=== PATIENT | female | born 1965 | race Hispanic/Latino ===

== ENCOUNTER 2017-11-05 21:25 | Emergency (ER) | payer OTHER ==
[~2017-11-05 21:25] MED LIST: BUTA-295 PO; CIPR-245 PO; HYDR200T4 PO; LORA0.5T2 PO; MULT-1271 PO; PRED2.5T PO; VENL-53 PO
[2017-11-05] MEDS ORDERED: ONDANSETRON HCL 4 MG/2 ML VIAL ONE (22:00)
[2017-11-05 22:02] LABS: APPEARANCE,URINE Clear (CLEAR); BILIRUBIN,URINE Negative (NEGATIVE); COLOR,URINE Dark Yellow (YELLOW); GLUCOSE, URINE (UA) Negative (NEGATIVE); KETONES,URINE 40 mg/dL (NEGATIVE); LEUKOCYTE ESTERASE ,URINE Negative (NEGATIVE); NITRATE,URINE Negative (NEGATIVE); OCCULT BLOOD,URINE Negative (NEGATIVE); PROTEIN,URINE POS 1+ (NEGATIVE); UROBILINOGEN,URINE 0.2 mg/dL (0.2-1.0)
[2017-11-05 22:07] LABS: AMPHET/METH SCREEN,URINE NEGATIVE (NEGATIVE); BARBITURATE SCREEN, URINE POSITIVE (NEGATIVE); BENZODIAZEPINES SCREEN,URINE NEGATIVE (NEGATIVE); CANNABINOID SCREEN,URINE NEGATIVE (NEGATIVE); COCAINE SCREEN,URINE NEGATIVE (NEGATIVE); OPIATE SCREEN,URINE NEGATIVE (NEGATIVE); PHENCYCLIDINE SCREEN,URINE NEGATIVE (NEGATIVE)
[2017-11-05 22:08] LABS: BASOPHILS % (AUTO) 0.1 % (0.0-5.0); EOSINOPHILS % (AUTO) 0.3 % (0.0-8.0); HEMATOCRIT 39.6 % (36-48); LYMPHOCYTES % (AUTO) 10.3 % (21.0-51.0); MEAN CORPUSCULAR HGB CONC 33.7 g/dL (32.0-36.0); MEAN CORPUSCULAR VOLUME 86.2 fL (79-99); MONOCYTES % (AUTO) 7.6 % (3.0-13.0); NEUTROPHILS % (AUTO) 81.7 % (40.0-77.0); PLATELET COUNT (AUTO) 152 K/uL (130-400); RED BLOOD CELL COUNT(AUTO) 4.59 MIL/uL (4.00-5.50); RED CELL DISTRIBUTION WIDTH 13.1 % (11.0-15.5); WHITE BLOOD COUNT (AUTO) 9.3 K/uL (4.8-10.8)
[2017-11-05 22:12] LABS: CARBON DIOXIDE 28 mmol/L (21-32); CHLORIDE 101 mmol/L (101-111); GLOMERULAR FILTR. RATE CALC 62 mL/min (>60); GLUCOSE,RANDOM 96 mg/dL (70-105); POTASSIUM 3.4 mmol/L (3.5-5.1); SODIUM SERUM 136 mmol/L (136-145); UREA NITROGEN, BLOOD 13 mg/dL (7-18)
[2017-11-05 22:13] LABS: INR 1.08 (0.85-1.15); PARTIAL THROMBOPLASTIN TIME 26.6 SEC (26.3-35.5); PROTHROMBIN TIME 11.3 SEC (9.6-11.6)
[2017-11-05 22:14] LABS: BACTERIA,URINE Few /HPF (None Seen); MUCUS,URINE Many LPF (None Seen); RBC,URINE None Seen /HPF (0-1); WBC,URINE 0-1 /HPF (0-1)
[2017-11-05 22:25] LABS: ALANINE AMINOTRANSFERASE 26 U/L (12-78); ALBUMIN 3.3 g/dL (3.5-5.0); AMYLASE 53 U/L (25-115); ASPARTATE AMINOTRANSFERASE 23 U/L (10-37); BILIRUBIN,TOTAL 0.5 mg/dL (0.2-1.0); CREATINE KINASE MB < 0.5 ng/mL (0.5-3.6); CREATINE KINASE, TOTAL 62 U/L (21-232); LIPASE 100 U/L (114-286); TOTAL PROTEIN, SERUM 7.2 g/dL (6.0-8.3)
== END 2017-11-05 23:18 | disposition home or self-care (01) ==
LOC: EDH 21:25
DX: A09 Infectious gastroenteritis and colitis, unspecified (principal); M32.9 Systemic lupus erythematosus, unspecified; H53.149 Visual discomfort, unspecified; Z88.0 Allergy status to penicillin; Z79.899 Other long term (current) drug therapy; Z98.890 Other specified postprocedural states
CPT/HCPCS: 36415; 74176; 80053; 80305; 81001; 82150; 82550; 82553; 83690; 85025; 85610; 85730; 93005; 96374; 99285; J2405

== ENCOUNTER → 2017-12-02 | Outpatient (CLI) | payer OTHER | END | disposition home or self-care (01) | LOC: RAH 07:54 | PROVIDERS: ATTEND Internal Medicine Gastroenterology | DX: R10.11 Right upper quadrant pain (principal); R11.2 Nausea with vomiting, unspecified | CPT/HCPCS: 76700 ==

== ENCOUNTER 2024-09-01 20:20 | Emergency (ER) | payer OTHER ==
[~2024-09-01] VITALS: Ht 165.1 cm; Wt 71.2 kg
[~2024-09-01 20:20] MED LIST changes: -CIPR-245 PO; +CIPR500T10 PO; -HYDR200T4 PO; +HYDR200T75 PO
[2024-09-01 20:53] LABS: RAPID GROUP A STREP negative (NEGATIVE)
[2024-09-01 20:56] LABS: SARS-CoV-2, RNA, NAAT NEGATIVE SARS CoV-2 (NEGATIVE)
[2024-09-01 21:01] LABS: BASOPHILS # (AUTO) 0.02 K/uL (0.00-0.20); BASOPHILS % (AUTO) 0.4 % (0.0-5.0); EOSINOPHILS # (AUTO) 0.01 K/uL (0.00-0.70); EOSINOPHILS % (AUTO) 0.2 % (0.0-8.0); HEMATOCRIT 45.8 % (36-48); IMMATURE GRANULOCYTE ABSOLUTE 0.01 K/uL (0-1); LYMPHOCYTES # (AUTO) 1.2 K/uL (1.0-4.8); LYMPHOCYTES % (AUTO) 22.9 % (21.0-51.0); MEAN CORPUSCULAR HEMOGLOBIN 29.1 pg (27.0-33.0); MEAN CORPUSCULAR HGB CONC 33.2 g/dL (32.0-36.0); MEAN CORPUSCULAR VOLUME 87.7 fL (79-99); MONOCYTES # (AUTO) 0.5 K/uL (0.1-1.0); MONOCYTES % (AUTO) 9.8 % (3.0-13.0); NEUTROPHILS # (AUTO) 3.5 K/uL (1.8-7.7); NEUTROPHILS % (AUTO) 66.5 % (40.0-77.0); PLATELET COUNT (AUTO) 202 K/uL (130-400); RED BLOOD CELL COUNT(AUTO) 5.22 MIL/uL (4.00-5.50); RED CELL DISTRIBUTION WIDTH 12.7 % (11.0-15.5); WHITE BLOOD COUNT (AUTO) 5.3 K/uL (4.8-10.8)
[2024-09-01 21:03] LABS: ADD UA MICROSCOPIC YES; APPEARANCE,URINE CLEAR (CLEAR); BILIRUBIN,URINE NEGATIVE (NEGATIVE); COLOR,URINE YELLOW (YELLOW); GLUCOSE, URINE (UA) NEGATIVE (NEGATIVE); KETONES,URINE 60 mg/dL (NEGATIVE); LEUKOCYTE ESTERASE ,URINE 250 Leu/uL (NEGATIVE); NITRATE,URINE NEGATIVE (NEGATIVE); OCCULT BLOOD,URINE NEGATIVE (NEGATIVE); PH,URINE 7.5 (5.0-8.0); PROTEIN,URINE 20 mg/dL (NEGATIVE); UROBILINOGEN,URINE 0.2 mg/dL (0.2-1.0)
[2024-09-01 21:03] LABS: INFLUENZA TYPE A Negative For Type A (NEGATIVE); INFLUENZA TYPE B Negative For Type B (NEGATIVE)
--- NOTE | 2024-09-01 21:05 | ERN ---
General Chief Complaint: Multiple Complaints Stated Complaint: ABDOMINAL PAIN,VOMITTING,DEHYDRATED,NO FOOD 3DAYS Time Seen by MD: 20:22 Time Seen by Midlevel: 20:22 Source: patient History of Present Illness Initial Comments Patient is a 59-year-old female presenting to the emergency department with multiple complaints. She states that for the last couple of days she has been having generalized body weakness along with nausea and vomiting and chills. She was still reports developing right ear pain. She was seen by her primary care doctor earlier today who diagnosed her with a right ear infection along with a throat infection. She was given doxycycline and discharged home with supportive management. She states she has been unable to take her medications secondary to her vomiting. Allergies: Coded Allergies: Penicillins (Unverified Allergy, Unknown, 10/09/17) Home Meds Active Scripts Nitrofurantoin/Nitrofuran Mac (Macrobid) 100 Mg Cap, 1 CAP PO BID for 5 Days, #10 CAP 0 Refills Prov:DONOVAN CHILDS 09/01/24 Famotidine (Pepcid) 20 Mg Tablet, 1 TAB PO BID for 7 Days, #14 TAB 0 Refills Prov:DONOVAN CHILDS 09/01/24 Ondansetron (Ondansetron Odt) 4 Mg Tab.rapdis, 4 MG PO BID for 7 Days, #14 TAB Prov:DONOVAN CHILDS 09/01/24 Ciprofloxacin HCl (Ciprofloxacin HCl) 500 Mg Tablet, 500 MG PO BID, #10 TAB Prov:HOME PENALOZA MD 10/11/17 Reported Medications Multivit-Min/Iron Fum/Folic AC (Unvuw-Imeylgi-Mxvprtym Tablet) 1 Each Tablet, 1 EACH PO DAILY, TAB 10/09/17 Butalbital/Aspirin/Caffeine (Lyuuus-Dwhrokm-Ryulv 50-325-40) 1 Each Tablet, 1 EACH PO Q8H PRN for HEADACHE, TAB 10/09/17 Prednisone (Prednisone) 2.5 Mg Tablet, 2.5 MG PO BID, TAB 10/09/17 Venlafaxine HCl (Venlafaxine HCl) 37.5 Mg Tablet, 37.5 MG PO BID, TAB 10/09/17 Hydroxychloroquine Sulfate (Hydroxychloroquine Sulfate) 200 Mg Tablet, 200 MG PO AM, TAB 10/09/17 Lorazepam (Lorazepam) 0.5 Mg Tablet, 0.5 MG PO BID PRN for ANXIETY, TAB 10/09/17 Past Medical History Past Medical History: Fibromyalgia, Other Medical History Other: CONNECTIVE TISSUE DISORDER, RAYNAUDS Past Surgical History: Appendectomy, ROS Dictation CONSTITUTIONAL: Negative except for HPI HEAD/FACE: Negative except for HPI EENT: Negative except for HPI RESPIRATORY: Negative except for HPI GASTROINTESTINAL/ABDOMINAL: Negative except for HPI GENITOURINARY: Negative except for HPI MUSCULOSKELETAL: Negative except for HPI INTEGUMENTARY: Negative except for HPI NEUROLOGICAL/PSYCH: Negative except for HPI HEMATOLOGIC/LYMPHATIC: Negative except for HPI All Systems Negative, Except as noted above. 13 point review of systems assessed and all negative except for above. Physical Exam Physical Exam Dictation Vital Signs reviewed General Appearance: Alert, oriented x 3, no acute distress, well developed, nourished. Head and Face: non-traumatic. Eyes: PERRL, pink conjunctivas, eyelid no trauma, anterior chamber with arcus senilis. Ears: Pinnas intact and no signs of trauma or erythema ear canals clear and no discharge TM no erythema Nose: No discharge, no bleeding. Oropharynx: Mouth normal, tongue pink, pharynx clear,no erythema, tonsils no exudates, no abscesses noted, mucous membrane moist Neck: Supple, non-tender, no thyromegaly, no masses, no JVD, no bruits Breast:Deferred Chest:No tenderness, no crepitus, no paradoxical movement, no retractions Lungs:Clear, well-ventilated, symmetric, no rales, no wheezing, no rhonchi, no stridor, good breath sounds bilaterally Heart: Regular rate, regular rhythm, no murmur, no gallops Vascular: no peripheral edema, Abdomen: Soft, positive bowel sounds, nondistended, no guarding, nontender, no rebound, no masses no hepatomegaly, no splenomegaly, no Palmer's sign, no hernias. Rectal: Deferred Genital: Deferred Neurological: Normal speech, motor function intact, sensory function intact Musculoskeletal: Neck nontender, full range of motion, back nontender, full range of motion, Extremities: nontender, full range of motion Skin: Color pink, dry, no turgor, no rash, no lacerations, no abrasions, no contusions. Lymphatic: Deferred Results Laboratory and Microbiology Lab and Micro Result Laboratory Tests Test 09/01/24 20:29 09/01/24 20:48 09/01/24 20:49 Influenza Type A Antigen Negative For Type A Influenza Type B Antigen Negative For Type B SARS-CoV-2, RNA, NAAT NEGATIVE SARS CoV-2 Group A Streptococcus Rapid negative (NEGATIVE) White Blood Count 5.3 K/uL (4.8-10.8) Red Blood Count 5.22 MIL/uL (4.00-5.50) Hemoglobin 15.2 g/dL (12.0-16.0) Hematocrit 45.8 % (36-48) Mean Corpuscular Volume 87.7 fL (79-99) Mean Corpuscular Hemoglobin 29.1 pg (27.0-33.0) Mean Corpuscular Hemoglobin Concent 33.2 g/dL (32.0-36.0) Red Cell Distribution Width 12.7 % (11.0-15.5) Platelet Count 202 K/uL (130-400) Mean Platelet Volume 10.2 fL (7.5-10.5) Immature Granulocyte % (Auto) 0.2 % (0-1) Neutrophils (%) (Auto) 66.5 % (40.0-77.0) Lymphocytes (%) (Auto) 22.9 % (21.0-51.0) Monocytes (%) (Auto) 9.8 % (3.0-13.0) Eosinophils (%) (Auto) 0.2 % (0.0-8.0) Basophils (%) (Auto) 0.4 % (0.0-5.0) Neutrophils # (Auto) 3.5 K/uL (1.8-7.7) Lymphocytes # (Auto) 1.2 K/uL (1.0-4.8) Monocytes # (Auto) 0.5 K/uL (0.1-1.0) Eosinophils # (Auto) 0.01 K/uL (0.00-0.70) Basophils # (Auto) 0.02 K/uL (0.00-0.20) Absolute Immature Granulocyte (auto 0.01 K/uL (0-1) Nucleated Red Blood Cells 0.0 % (0.0-0.19) Sodium Level 144 mmol/L (136-145) Potassium Level 3.4 mmol/L (3.5-5.1) L Chloride Level 105 mmol/L (101-111) Carbon Dioxide Level 30 mmol/L (21-32) Blood Urea Nitrogen 18 mg/dL (7-18) Creatinine 0.9 mg/dL (0.5-1.0) Glomerular Filtration Rate Calc 73 mL/min (>90) Random Glucose 102 mg/dL (70-105) Total Calcium 9.4 mg/dL (8.5-10.1) Total Bilirubin 0.5 mg/dL (0.2-1.0) Direct Bilirubin 0.1 mg/dL (0.0-0.3) Aspartate Amino Transf (AST/SGOT) 23 U/L (10-37) Alanine Aminotransferase (ALT/SGPT) 26 U/L (12-78) Alkaline Phosphatase 93 U/L (50-136) Total Protein 8.5 g/dL (6.0-8.3) H Albumin 3.9 g/dL (3.5-5.0) Lipase 34 U/L (16-77) Urine Color YELLOW (YELLOW) Urine Appearance CLEAR (CLEAR) Urine pH 7.5 (5.0-8.0) Urine Specific Mcnabb 1.019 (1.001-1.031) Urine Protein 20 mg/dL (NEGATIVE) H Urine Glucose (UA) NEGATIVE mg/dL (NEGATIVE) Urine Ketones 60 mg/dL (NEGATIVE) H Urine Occult Blood NEGATIVE (NEGATIVE) Urine Nitrate NEGATIVE (NEGATIVE) Urine Bilirubin NEGATIVE mg/dL (NEGATIVE) Urine Urobilinogen 0.2 mg/dL (0.2-1.0) Urine Leukocyte Esterase 250 Roldan/uL (NEGATIVE) H Urine RBC 2-5 /HPF (0-1) H Urine WBC 6-10 /HPF (0-1) H Urine Squamous Epithelial Cells RARE /HPF (0-2) Urine Bacteria RARE /HPF (None Seen) Labs Reviewed?: Yes MDM MDM: Patient is a 59-year-old female presenting to the emergency department with multiple complaints. She states that for the last couple of days she has been having generalized body weakness along with nausea and vomiting and chills. She was still reports developing right ear pain. She was seen by her primary care d trino earlier today who diagnosed her with a right ear infection along with a throat infection. She was given doxycycline and discharged home with supportive management. She states she has been unable to take her medications secondary to her vomiting. On physical examination patient is in no acute distress. She has dry mucous membranes but the remainder of his physical examination is unremarkable. Her CBC and chemistries unremarkable including liver function tests. Her urinalysis is consistent with infections however there are no clinical signs of pyelonephritis. She was no leukocytosis. She was no CVA tenderness. Her respiratory swabs are negative. Patient was given IV fluids along with Zofran and Pepcid in the emergency department and she reports feeling significantly improved. Patient was advised to follow up with your PCP in 2-3 days for repeat evaluation. Return precautions discussed Differential diagnosis: Gastroenteritis, urinary tract infection, electrolyte abnormality, dehydration There are no social concerns with this patient. Prescription drug management Prescriptions will include: Zofran Pepcid Medical management and examination interpretation discussions were had by me with other qualified healthcare professionals as indicated for the patient's care. ED Course Orders Procedure Category Date Status Time Cbc With Differential LAB 09/01/24 Complete 20:22 Basic Metabolic Panel LAB 09/01/24 Complete 20:22 Hepatic Function Panel LAB 09/01/24 Complete 20:22 Lipase LAB 09/01/24 Complete 20:22 Urinalysis Profile LAB 09/01/24 Complete 20:22 Covid Rna Naat LAB 09/01/24 Complete 20:26 Influenza Type A & B, LAB 09/01/24 Complete Rapid 20:26 Rapid (Group A Strep) LAB 09/01/24 Complete 20:26 Culture Urine ZACH 09/01/24 In Process 21:04 Ondansetron 4mg Inj PHA 09/01/24 Complete (Zofran 4mg Inj) 22:00 Famotidine 20mg Vial PHA 09/01/24 Complete (Pepcid 20mg Vial) 22:00 Ketorolac PHA 09/01/24 Complete Tromethamine 15mg/Ml 22:00 0.9%Nacl 1000ml (Ns PHA 09/01/24 Complete 1000ml) 22:00 Current Medications Medications (Trade) Dose Ordered Sig/Luciano Route PRN Reason Start Time Stop Time Status Last Admin Dose Admin Famotidine (Pepcid 20mg Vial) 20 mg ONCE ONCE IV 09/01/24 22:00 09/01/24 22:01 DC 09/01/24 22:52 Ketorolac Tromethamine (toRADol) 15 mg ONCE ONCE IV 09/01/24 22:00 09/01/24 22:01 DC 09/01/24 22:52 Ondansetron HCl (zoFRAN 4MG INJ) 4 mg ONCE ONCE IVP 09/01/24 22:00 09/01/24 22:01 DC 09/01/24 22:52 Sodium Chloride 1,000 ml @ 0 mls/hr ONCE ONCE IV 09/01/24 22:00 09/01/24 22:01 DC 09/01/24 22:52 Vital Signs Date Time Temp Pulse Resp B/P (MAP) Pulse Ox O2 Delivery O2 Flow Rate FiO2 09/02/24 00:10 98.2 91 18 122/75 99 Room Air* 0 09/01/24 22:34 99.1 103 20 132/82 99 Room Air* 0 09/01/24 20:21 99.1 103 20 132/82 99 Room Air DX & DISP Disposition: Discharge Departure Impression: Primary Impression: Gastroenteritis Additional Impression: Urinary tract infection Condition: Stable Scripts Nitrofurantoin/Nitrofuran Mac (Macrobid) 100 Mg Cap 1 CAP PO BID for 5 Days, #10 CAP 0 Refills Prov: DONOVAN CHILDS 09/01/24 Famotidine (Pepcid) 20 Mg Tablet 1 TAB PO BID for 7 Days, #14 TAB 0 Refills Prov: DONOVAN CHILDS 09/01/24 Ondansetron (Ondansetron Odt) 4 Mg Tab.rapdis 4 MG PO BID for 7 Days, #14 TAB Prov: DONOVAN CHILDS 09/01/24 Additional Instructions: Your blood work today is unremarkable. Your urinalysis is consistent with infection. I have given you a prescription for Macrobid for your urine infection. Follow up with your primary care doctor in 2-3 days for repeat evaluation. Return to the ER for any new or worsening symptoms. Referrals: STEPH CHAU (PCP) Time of Disposition: 23:29 I have reviewed the case, and I agree with, Diagnosis and Plan I performed the substantive portion of the visit. I have reviewed and personally made and approve the management plan that is documented in the note by myself or the MEL. I acknowledge for responsibility for the patient's management plan. DONOVAN CHILDS Sep 01, 2024 21:05
[2024-09-01 21:09] LABS: BACTERIA,URINE RARE /HPF (None Seen); MUCUS,URINE RARE LPF (None Seen); SQUAMOUS EPITHELIAL CELL,UR RARE /HPF (0-2)
[2024-09-01 21:14] LABS: CREATININE 0.9 mg/dL (0.5-1.0); POTASSIUM 3.4 mmol/L (3.5-5.1)
[2024-09-01 21:17] LABS: ALBUMIN 3.9 g/dL (3.5-5.0); BILIRUBIN,DIRECT 0.1 mg/dL (0.0-0.3); BILIRUBIN,TOTAL 0.5 mg/dL (0.2-1.0); TOTAL PROTEIN, SERUM 8.5 g/dL (6.0-8.3)
[2024-09-01] MEDS: ondanSETRON 4MG INJ IVP ONE (22:52)
[2024-09-01] MEDS: ketOROlac 15MG/ML VIAL (15MG/ML) IV ONE (22:52)
[2024-09-01] MEDS: FAMOTIDINE 20MG VIAL IV ONE (22:52)
[2024-09-01] MEDS: 0.9%NACL 1000ML 1,000 ML IV ONE (22:52)
[2024-09-01] MEDS ORDERED: FAMO-136 PO (23:30)
[2024-09-01] MEDS ORDERED: ONDA-243 PO (23:30)
[2024-09-01] MEDS ORDERED: MACR100 PO (23:44)
[2024-09-02 00:10] VITALS: BP 122/75; PULSE 91; RESP 18; TEMP 98.2; O2SAT 99
== END 2024-09-02 00:11 | disposition home or self-care (01) ==
LOC: EDH 20:20
DX: K52.9 Noninfective gastroenteritis and colitis, unspecified (principal); N39.0 Urinary tract infection, site not specified; I73.00 Raynaud's syndrome without gangrene; M79.7 Fibromyalgia; Z20.822 Contact with and (suspected) exposure to COVID-19; Z79.52 Long term (current) use of systemic steroids; Z88.0 Allergy status to penicillin; Z90.49 Acquired absence of other specified parts of digestive tract; Z79.899 Other long term (current) drug therapy; Z98.890 Other specified postprocedural states
CPT/HCPCS: 99284; 96374; 96375; 87635; 80076; 80048; 83690; 85025; 87086; 87880; 87804 ×2; 81001; 36415; J3490; J7030; J2405; J1885